=== PATIENT | female | born 2000 | race Caucasian/White ===

== ENCOUNTER 2020-06-19 07:00 | Outpatient (CLI) | payer OTHER ==
[2020-06-19 21:20] LABS: CANDIDA GROUP DNA NEGATIVE (NEGATIVE); CANDIDA KRUSEI DNA NEGATIVE (NEGATIVE); TRICHOMONAS VAGINALIS DNA NEGATIVE (NEGATIVE)
== END 2020-06-19 23:59 | disposition home or self-care (01) ==
LOC: LAB.R 07:00
PROVIDERS: ATTEND Advanced Practice Midwife
DX: Z00.00 Encounter for general adult medical examination without abnormal findings (principal); N76.0 Acute vaginitis
CPT/HCPCS: 87661; 87801

== ENCOUNTER 2020-08-22 15:17 | Outpatient (CLI) | payer OTHER ==
--- NOTE | 2020-08-22 16:39 | Ultrasound Report ---
PROCEDURE: Pelvic Complete INDICATIONS: IUD CONTRACEPTIVE - MIRENA TECHNIQUE: Real-time transabdominal scanning was performed of the pelvic organs, with image documentation. COMPARISON: None FINDINGS: Uterus: Uterus is normal in size at 7.1 x 3.2 x 3.9 cm. Endometrium measures 6 mm in combined thick ness. Intrauterine device is present in appropriate position. Ovaries: Right ovary measures 2.3 x 1.8 x 3.8 cm, volume 8.3 cc. Less than 12 follicles are noted. L eft ovary measures 3.4 x 1.7 x 2.1 cm, volume 6.2 cc. Other: No free pelvic fluid. Limited scanning through the kidneys shows no hydronephrosis. IMPRESSION: 1. IUD in appropriate position. The above findings were discussed with Tessie Vidales on 08/22/2020 at 4:38 PM. Reviewed by: Shannan Lindo MD on 08/22/2020 4:38 PM PST Approved by: Shannan Lindo MD on 08/22/2020 4:38 PM PST Station ID: [id number]
== END 2020-08-22 15:18 | disposition home or self-care (01) ==
LOC: DI 15:17
PROVIDERS: ATTEND Advanced Practice Midwife
DX: Z30.431 Encounter for routine checking of intrauterine contraceptive device (principal)
CPT/HCPCS: 76830; 76856